=== PATIENT | male | born 1970 | race Caucasian/White ===

== ENCOUNTER → 2017-03-15 | Outpatient (CLI) | payer BC ==
--- NOTE | 2017-03-15 14:35 | Diagnostic Imaging Report ---
PROCEDURE: US left lower extremity venous. TECHNIQUE: Multiple real-time grayscale images were obtained over the left lower extremity in various projections. Additional duplex Doppler and color Doppler images were also obtained. INDICATION: Leg pain and swelling There are no prior studies available for comparison. There is extensive thrombosis of the visualized deep venous system. Thrombus extends from the common femoral vein to the distal posterior tibial vein. IMPRESSION: There is an extensive deep venous thrombosis involving the left lower extremity. These results were called to Sam Cosntantino RN by our sonologist at the time of dictation.. CRITICAL FINDING Dictated by: Dictated on workstation # [id number]
--- NOTE | 2017-03-15 15:02 | Diagnostic Imaging Report ---
EXAM: Left lower extremity arterial Doppler. INDICATION: Leg pain and swelling. TECHNIQUE: Spectral and color flow imaging of the arterial system of the left lower extremity was performed. COMPARISON: There are no prior studies available for comparison. FINDINGS: There is good arterial blood flow in the common femoral, proximal and mid superficial femoral artery. Triphasic waveforms are evident in these vessels. The velocity in the distal superficial femoral artery does show a slight decrease and the waveform is somewhat dampened. These findings are accentuated in the popliteal artery as the waveform is even more dampened and the velocity decreases by almost half. There is only a small amount of arterial blood flow seen in the posterior tibial and dorsalis pedis arteries. The left lower extremity venous Doppler exam performed in conjunction with this study did show an extensive deep venous thrombosis. I suspect that the diminished arterial blood flow is more likely due to the edema of the soft tissues related to the deep venous thrombosis than to a hemodynamically significant stenosis. If further evaluation of the arterial supply to the lower leg is desired, a followup arterial Doppler exam after the episode of deep venous thrombosis has resolved would be recommended. IMPRESSION: There is diminished arterial blood flow to the left lower leg. This is more likely due to the soft tissue edema of the lower leg related to the deep venous thrombosis than to a hemodynamically significant stenosis. Recommendations as above. Dictated by: Dictated on workstation # [id number]
== END ==
LOC: RAD 12:48
PROVIDERS: ATTEND Nurse Practitioner Family
DX: I82.4Z2 Acute embolism and thrombosis of unspecified deep veins of left distal lower extremity (principal)
CPT/HCPCS: 93926